=== PATIENT | male | born 1975 | race Hispanic/Latino ===

== ENCOUNTER → 2023-07-11 | Outpatient (CLI) | payer OTHER | END | disposition home or self-care (01) | LOC: RAH 13:22 | PROVIDERS: ATTEND Internal Medicine Cardiovascular Disease | DX: Z13.6 Encounter for screening for cardiovascular disorders (principal) | CPT/HCPCS: 75571 ==

== ENCOUNTER 2023-08-10 07:30 | Day surgery (SDC) | payer OTHER ==
[2023-08-08 11:15] LABS: BASOPHILS # (AUTO) 0.04 K/uL (0.00-0.20); BASOPHILS % (AUTO) 0.5 % (0.0-5.0); EOSINOPHILS # (AUTO) 0.14 K/uL (0.00-0.70); EOSINOPHILS % (AUTO) 1.6 % (0.0-8.0); HEMATOCRIT 42.3 % (42-54); IMMATURE GRANULOCYTE ABSOLUTE 0.03 K/uL (0-1); LYMPHOCYTES # (AUTO) 2.3 K/uL (1.0-4.8); MEAN CORPUSCULAR HEMOGLOBIN 30.2 pg (27.0-33.0); MEAN CORPUSCULAR HGB CONC 33.8 g/dL (32.0-36.0); MEAN CORPUSCULAR VOLUME 89.4 fL (79-99); MONOCYTES # (AUTO) 0.5 K/uL (0.1-1.0); MONOCYTES % (AUTO) 5.7 % (3.0-13.0); NEUTROPHILS # (AUTO) 5.7 K/uL (1.8-7.7); NEUTROPHILS % (AUTO) 65.9 % (40.0-77.0); PLATELET COUNT (AUTO) 211 K/uL (130-400); POTASSIUM 4.6 mmol/L (3.5-5.1); RED BLOOD CELL COUNT(AUTO) 4.73 MIL/uL (4.50-6.20); RED CELL DISTRIBUTION WIDTH 12.4 % (11.0-15.5); WHITE BLOOD COUNT (AUTO) 8.7 K/uL (4.8-10.8)
[2023-08-08 11:28] LABS: INR <= 0.93 (0.85-1.15); PROTHROMBIN TIME 10.6 SEC (9.6-11.6)
[2023-08-08 11:30] VITALS: BP 139/87; PULSE 89; RESP 18
[2023-08-08 11:30] LABS: PARTIAL THROMBOPLASTIN TIME 30.7 SEC (26.3-35.5)
[2023-08-10] VITALS (14 sets, daily range): BP systolic 123–169; BP diastolic 66–105; PULSE 95–116; RESP 11–18
[~2023-08-10] VITALS: Ht 175.3 cm; Wt 99.2 kg
[~2023-08-10 07:30] MED LIST: CARV12.511 PO; CETI10TA57 PO; EMPA25TA PO; GABA-534 PO; INSU100V37 SQ; OLME-9 PO; OMEP40CA21 PO; ROSU20TA73 PO; SEMA1PEN3 SQ
[2023-08-10] MEDS: 0.9%NACL 1000ML 1,000 ML IV ONE (09:28)
[2023-08-10] MEDS ORDERED: MIDAZOLAM HCL 1 MG/ML 2ML VIAL ONE ×3 (10:57→11:24)
[2023-08-10] MEDS ORDERED: MEPERIDINE-PF 25 MG/ML SYG ONE ×3 (10:57→11:24)
[2023-08-10] MEDS ORDERED: HEPARIN 10,000 UNIT/10ML (1,000 UNIT/ML) VIAL ONE (10:57)
[2023-08-10] MEDS ORDERED: LIDOCAINE HCL 400MG/20ML VIAL ONE (11:00)
[2023-08-10] MEDS ORDERED: DiphenhydrAMINE HCL 50 MG/ML VIAL ONE (11:29)
[2023-08-10] MEDS ORDERED: PROPOFOL 1000 MG/100 ML 100 ML IV ONE ×3 (11:40→13:15)
[2023-08-10] MEDS ORDERED: KETAMINE 50MG/ML SYRINGE 50 MG/ML DISP.SYRIN ONE (11:40)
[2023-08-10] MEDS ORDERED: FENTANYL CITRATE PF 50 MCG/1 ML 2ML VIAL ONE (11:42)
[2023-08-10] MEDS ORDERED: SUCCINYLCHOLINE CHLORIDE 20 MG/ML 10 ML VIAL ONE (11:42)
[2023-08-10] MEDS ORDERED: ADENOSINE 90MG VIAL IV ONE (11:59)
[2023-08-10] MEDS ORDERED: KETAMINE HCL 100 MG/ML 5ML VIAL IJ ONE (13:15)
== END 2023-08-10 17:05 | disposition home or self-care (01) ==
LOC: DAH 07:30
PROVIDERS: ATTEND Internal Medicine Cardiovascular Disease
DX: I45.6 Pre-excitation syndrome (principal); I47.10 Supraventricular tachycardia, unspecified; I48.91 Unspecified atrial fibrillation; F41.9 Anxiety disorder, unspecified; R00.2 Palpitations; R55 Syncope and collapse; E11.40 Type 2 diabetes mellitus with diabetic neuropathy, unspecified; M79.7 Fibromyalgia; M54.30 Sciatica, unspecified side; I10 Essential (primary) hypertension; E78.2 Mixed hyperlipidemia; Z79.4 Long term (current) use of insulin; Z79.84 Long term (current) use of oral hypoglycemic drugs; Z79.899 Other long term (current) drug therapy; Z83.42 Family history of familial hypercholesterolemia; Z83.3 Family history of diabetes mellitus; Z82.49 Family history of ischemic heart disease and other diseases of the circulatory system; Z90.49 Acquired absence of other specified parts of digestive tract; Z98.890 Other specified postprocedural states
CPT/HCPCS: 80048; 85025; 85610; 85730; 36415; 93005 ×2; 93623; 93653; 82948 ×2; A4223 ×3; C1894 ×5; C1732 ×2; C1730 ×3; C1731; A4649 ×2; J1200; J3010; J3490 ×3; J0330; J7030; J1644 ×2; J2250 ×3; J2704 ×3; J2175 ×3; J0153; A4215; A4222; A4221; A4663; A4216; A4606; 99156; 99157

== ENCOUNTER 2024-09-09 05:41 | Day surgery (SDC) | payer OTHER ==
[2024-09-05 10:42] LABS: BASOPHILS # (AUTO) 0.06 K/uL (0.00-0.20); BASOPHILS % (AUTO) 0.8 % (0.0-5.0); EOSINOPHILS # (AUTO) 0.13 K/uL (0.00-0.70); EOSINOPHILS % (AUTO) 1.6 % (0.0-8.0); HEMATOCRIT 46.6 % (42-54); IMMATURE GRANULOCYTE ABSOLUTE 0.03 K/uL (0-1); LYMPHOCYTES # (AUTO) 2.5 K/uL (1.0-4.8); LYMPHOCYTES % (AUTO) 31.9 % (21.0-51.0); MEAN CORPUSCULAR HEMOGLOBIN 30.6 pg (27.0-33.0); MEAN CORPUSCULAR HGB CONC 33.9 g/dL (32.0-36.0); MEAN CORPUSCULAR VOLUME 90.3 fL (79-99); MONOCYTES # (AUTO) 0.5 K/uL (0.1-1.0); MONOCYTES % (AUTO) 6.7 % (3.0-13.0); NEUTROPHILS # (AUTO) 4.6 K/uL (1.8-7.7); NEUTROPHILS % (AUTO) 58.6 % (40.0-77.0); PLATELET COUNT (AUTO) 210 K/uL (130-400); RED BLOOD CELL COUNT(AUTO) 5.16 MIL/uL (4.50-6.20); RED CELL DISTRIBUTION WIDTH 12.6 % (11.0-15.5); WHITE BLOOD COUNT (AUTO) 7.9 K/uL (4.8-10.8)
--- NOTE | 2024-09-05 10:46 | EKG ---
Formerly [facility] Test Date: 2024-09-05 Test Time: 10:36:33 Pat Name: VICKY NEUMANN Department: [facility] Room: Gender: M Purchasing Administrative Assistant: [id number] : 1975 Requested By: ERICKSON MARTINEZ Order Number: [id number] Reading MD: Yury Trejo Measurements Intervals [place] Rate: 81 P: 49 GA: 144 QRS: 80 QRSD: 97 T: 26 QT: 383 QTc: 445 Interpretive Statements Sinus rhythm Compared to ECG 08/10/2023 14:22:38 Sinus tachycardia no longer present T-wave abnormality no longer present Possible ischemia no longer present Electronically Signed On 09-06-2024 11:39:36 CDT by Yury Trejo Please click the below link to view image of tracing.
[2024-09-05 10:52] LABS: CREATININE 1.1 mg/dL (0.5-1.3); POTASSIUM 4.2 mmol/L (3.5-5.1)
[2024-09-05 11:39] VITALS: BP 149/76; PULSE 86; RESP 18; TEMP 97.1
[2024-09-05 11:42] LABS: INR 0.97 (0.85-1.15); PROTHROMBIN TIME 10.3 SEC (9.6-11.6)
[2024-09-05 11:43] LABS: PARTIAL THROMBOPLASTIN TIME 29.2 SEC (26.3-35.5)
[2024-09-09] VITALS (16 sets, daily range): BP systolic 114–142; BP diastolic 61–92; PULSE 81–110; RESP 13–17; TEMP 97.1–97.8
[~2024-09-09] VITALS: Ht 175.3 cm; Wt 98.9 kg
[~2024-09-09 05:41] MED LIST changes: +CARV6.25 PO; -GABA-534 PO; -OLME-9 PO; -OMEP40CA21 PO; -ROSU20TA73 PO; +ROSU20TA98 PO; +VALS160T29 PO
[2024-09-09] MEDS ORDERED: 0.9%NACL 1000ML 1,000 ML IV ONE (06:19)
[2024-09-09] MEDS ORDERED: MIDAZOLAM HCL 1 MG/ML 2ML VIAL ONE (07:10)
[2024-09-09] MEDS ORDERED: ondanSETRON 4MG INJ ONE (07:10)
[2024-09-09] MEDS ORDERED: phenylEPHRINE HCL 10 MG/ML 1ML VIAL IV ONE (07:10)
[2024-09-09] MEDS ORDERED: proPOFol 10 MG/ML 20ML VIAL IV ONE (07:10)
[2024-09-09] MEDS ORDERED: FENTanyl CITRate PF 50 MCG/1 ML 2ML VIAL ONE ×2 (07:11→10:31)
[2024-09-09] MEDS ORDERED: rocuRONium bROMide 10MG/1ML 5ML VL ONE (07:12)
[2024-09-09] MEDS ORDERED: LIDOCAINE HCL 400MG/20ML VIAL ONE ×2 (07:15→07:18)
[2024-09-09] MEDS ORDERED: SODIUM BICARB 50MEQ 50ML VIAL 50 ML ONE (07:15)
[2024-09-09] MEDS ORDERED: HEParin 10,000 UNIT/10ML (1,000 UNIT/ML) VIAL ONE (07:16)
[2024-09-09] MEDS ORDERED: HEParin 1,000 UNIT VIAL ONE (07:16)
[2024-09-09] MEDS ORDERED: HEParin-NS 1,000 UNIT/500 ML 500 ML IV ONE (07:17)
[2024-09-09] MEDS ORDERED: ADENOSINE 6MG VIAL IV ONE ×2 (09:03→09:37)
[2024-09-09] MEDS ORDERED: GLYCOPYRROLATE 0.2 MG/ML 5 ML VIAL ONE (10:31)
[2024-09-09] MEDS ORDERED: NEOSTIGMINE METHYLSULFATE 1MG/ML IV ONE (10:31)
== END 2024-09-09 12:55 | disposition home or self-care (01) ==
LOC: DAH 05:41
PROVIDERS: ATTEND Internal Medicine Cardiovascular Disease
DX: I95.1 Orthostatic hypotension (principal); I49.9 Cardiac arrhythmia, unspecified; E78.2 Mixed hyperlipidemia; I47.10 Supraventricular tachycardia, unspecified; E11.22 Type 2 diabetes mellitus with diabetic chronic kidney disease; I12.0 Hypertensive chronic kidney disease with stage 5 chronic kidney disease or end stage renal disease; N18.6 End stage renal disease; R00.2 Palpitations; E11.40 Type 2 diabetes mellitus with diabetic neuropathy, unspecified; G47.33 Obstructive sleep apnea (adult) (pediatric); G89.29 Other chronic pain; E66.01 Morbid (severe) obesity due to excess calories; Z98.890 Other specified postprocedural states; Z99.2 Dependence on renal dialysis; Z68.32 Body mass index [BMI] 32.0-32.9, adult; Z79.899 Other long term (current) drug therapy; Z90.49 Acquired absence of other specified parts of digestive tract; Z83.3 Family history of diabetes mellitus; Z83.42 Family history of familial hypercholesterolemia; Z82.49 Family history of ischemic heart disease and other diseases of the circulatory system
CPT/HCPCS: 80048; 85025; 85610; 85730; 36415; 93005; 93620; 93623; 93621; 82948 ×2; C1894 ×4; C1732 ×2; C1730 ×2; A4649 ×2; C1760 ×4; J0153 ×2; J3010 ×2; J3490 ×5; J7030; J1644 ×3; J2250; J2704; J2405; J2710; J2371; A4215; A4222; A4221; A4663; A4216; A4606; A4223 ×3